=== PATIENT | female | born 1980 | race Two or more races ===

== ENCOUNTER 2023-01-30 09:25 | Day surgery (SDC) | payer OTHER ==
[~2023-01-30 09:25] MED LIST: LABETALOL HCL100 MG PO
== END 2023-01-30 19:55 | disposition home or self-care (01) ==
LOC: CIR.AMB 09:25
PROVIDERS: ATTEND Obstetrics & Gynecology
DX: O03.4 Incomplete spontaneous abortion without complication (principal); O72.2 Delayed and secondary postpartum hemorrhage; Z20.822 Contact with and (suspected) exposure to COVID-19; I10 Essential (primary) hypertension; J32.9 Chronic sinusitis, unspecified

== ENCOUNTER 2024-05-22 09:30 | Outpatient (CLI) | payer OTHER | END 2024-05-22 09:32 | disposition home or self-care (01) | LOC: PRENATAL 09:30 | PROVIDERS: ATTEND Obstetrics & Gynecology Maternal & Fetal Medicine | DX: O26.843 Uterine size-date discrepancy, third trimester (principal); O36.8130 Decreased fetal movements, third trimester, not applicable or unspecified; O09.523 Supervision of elderly multigravida, third trimester; O36.5930 Maternal care for other known or suspected poor fetal growth, third trimester, not applicable or unspecified; O09.813 Supervision of pregnancy resulting from assisted reproductive technology, third trimester; Z3A.36 36 weeks gestation of pregnancy ==